=== PATIENT | female | born 1935 | race Caucasian/White ===

== ENCOUNTER 2016-09-23 00:02 | Inpatient (IN) ==
[2016-09-23] MEDS ORDERED: SODIUM CHLORIDE 0.9% 1,000 ML IV STA (00:17)
[2016-09-23] MEDS ORDERED: ONDANSETRON 4 MG/2 ML VIAL IV STA (00:17)
[2016-09-23] MEDS ORDERED: ONDANSETRON 4 MG/2 ML VIAL ONE (00:25)
[2016-09-23 00:38] LABS: Basophils % 0.3 % (0.0-0.8); Eosinophils # 0.2 10*3/uL (0.0-0.87); Eosinophils % 2.2 % (0.00-10.9); Hematocrit 22.3 VOL% (35.7-47.0); Immature Granulocytes % 0.4 %; Immature Granulocytes Absolute 0.03 #; Lymphocytes # 0.9 10*3/uL (1.4-4.0); Lymphocytes % 12.6 % (21.3-54.2); Mean Corpuscular HGB Conc 28.3 GM/DL (32-36); Mean Corpuscular Hemoglobin 19 PG (27-34); Mean Corpuscular Volume 68.8 FL (87-102); Monocytes # 0.4 10*3/uL (0.11-0.8); Monocytes % 5.1 % (1.7-12.7); Neutrophils # 5.9 10*3/uL (1.4-7.4); Neutrophils % 79.4 % (38.7-73.9); Platelet Count 426 T/CUMM (130-400); Red Blood Count 3.24 MC/CUMM (3.8-5.5); Red Cell Distribution Width 16.7 % (9.3-17.3); White Blood Count 7.4 T/CUMM (4-12)
[2016-09-23 00:42] LABS: Hemoglobin 6.3 GM/DL (12.0-16.0)
[2016-09-23 00:55] LABS: Alanine Aminotransferase < 6 U/L (13-56); Albumin 3.1 G/DL (3.4-5.0); Alkaline Phosphatase 106 U/L (45-117); Aspartate Amino Transferase 7 U/L (0-37); Bilirubin,Total < 0.39 MG/DL (0.2-1.0); Blood Urea Nitrogen 13 MG/DL (7-18); Calcium 8.4 MG/DL (8.5-10.1); Glucose 122 MG/DL (74-106); Osmolality,Calculated 275.7 MOS/KG (273-304); Potassium 3.9 MMOL/L (3.5-5.1); Sodium 138 MMOL/L (136-145); Total Protein 6.2 G/DL (6.4-8.3)
[2016-09-23] MEDS ORDERED: METOCLOPRAMIDE 10 MG/2 ML VIAL ONE (01:07)
[2016-09-23] MEDS ORDERED: METOCLOPRAMIDE 10 MG/2 ML VIAL IV STA (01:10)
--- NOTE | 2016-09-23 01:38 | Emergency Department Note ---
Yani Rouse Gwan, am scribing for, and in the presence of, Mathew Dukes MD 00:24. IErnst Kevin Lee, MD, personally performed the services described in this documentation, ascribed by Robert Lomeli in my presence, and it is both accurate and complete . Arrival - Arrival Chief Complaint: Abdominal / Flank Pain Stated Complaint: abdominal pain ED Nursing Triage Note: PT TO ROOM VIA [facility] STRETCHER. PT C.O ABD PAIN SINCE 2099 LAST NIGHT. PT STATES SHE WAS SEEN IN ED FRIDAY FOR CONSTIPATIION. Mode of Arrival: Stretcher Limitations: No Limitations Source: Patient, Old Records Reviewed, RN Notes Reviewed - History of Present Illness HPI Narrative: Patient is a 81 y/o white female who presents to the ED via EMS from home with a c/o abd pain and nausea with an onset 2099 last night. Patient confirmed that she was last seen in ED 09/20/2016 with constipation and abd pain. She is being followed by physicians at [facility]. Patient denies any vomiting. During exam, pt appeared lethargic with a flat affect but no signs of distress. No other problems/complaints reported in ED. Onset (ago): hour(s) Consistency: constant Severity: moderate Allergies/Adverse Reactions: Allergies Allergy/AdvReac Type Severity Reaction Status Date / Time aspirin Allergy Hallucinati Verified 11/07/14 09:20 ng Home Medications: Home Medications Medication Instructions Recorded Confirmed Type Lansoprazole [Prevacid] 30 mg PO BID #60 capsule. 11/07/14 06/25/16 Rx Furosemide Tab [Lasix Tab] 20 mg PO DAILY #7 tablet 11/21/14 06/25/16 Rx hydrOXYzine HCL TAB [Atarax Tab] 25 mg PO BID 06/25/16 06/25/16 History Dicyclomine Cap/Tab [Bentyl 20 mg PO QID PRN #20 tablet 09/20/16 Rx Cap/Tab] Ondansetron [Ondansetron Odt] 8 mg PO Q4H PRN #10 tab.rapdis 09/20/16 Rx Review of System - Review of System 12 point system: reviewed and no additional remarkable complaints except as stated - Review of System Constitutional: Absent: chills, fever Eyes: Absent: discharge Head/Ears/Nose/Throat: Absent: earache Respiratory: Absent: cough Cardiovascular: Absent: chest pain Gastrointestinal: Present: as per HPI, abdominal pain, nausea. Absent: vomiting , diarrhea Genitourinary female: Absent: dysuria Musculoskeletal: Absent: arm pain, back pain, leg pain, neck pain Skin: Absent: rash, lesions Neurological: Absent: headache, weakness Medical,Surgical,& Family Hx - Medical History Respiratory: History of: Bronchitis Gastrointestinal: History of: GERD, GI Problems (spastic colon/constipation) Musculoskeletal: History of: Osteoporosis - Social History Smoking Status: Unknown if ever smoked Frequency of Alcohol Use: None Type of Drug Use: None Exam Vital Signs: Vital Signs Temperature 97.9 F 09/23/16 00:05 Pulse Rate 81 09/23/16 00:05 Respiratory Rate 16 09/23/16 00:05 Blood Pressure 159/68 09/23/16 00:05 O2 Sat by Pulse Oximetry 93 L 09/23/16 00:05 - General General appearance: alert, in no apparent distress - Head Head exam: Present: atraumatic, normocephalic - Eye Eye exam: Present: other (cataract noted to left eye) - ENT ENT exam: Present: normal oropharynx, mucous membranes moist, TM's normal bilaterally, normal external ear exam - Neck Neck exam: Present: full ROM, trachea midline. Absent: tenderness - Chest Chest inspection: Present: symmetric chest wall rise. Absent: tenderness - Respiratory Respiratory exam: Present: normal lung sounds bilaterally. Absent: respiratory distress - Cardiovascular Cardiovascular exam: Present: regular rate, normal rhythm, normal heart sounds. Absent: murmur, rubs - Abdominal Exam Abdominal exam: Present: soft, tenderness (mild tenderness noted to abd ) - Rectal Exam Rectal exam: Present: heme (-) stool - Extremities Exam Extremities exam: Present: full ROM. Absent: tenderness - Back Exam Back exam: Present: full ROM. Absent: tenderness - Neurological Exam Neurological exam: Present: alert, oriented X3, CN II-XII intact. Absent: motor sensory deficit - Psychiatric Psychiatric exam: Present: normal affect, normal mood - Skin Skin exam: Present: warm, dry, intact, normal color Results - Labs CBC & BMP: 09/23/16 00:20 09/23/16 00:20 Lab Results: I have reviewed the patients labs - Diagnostic Findings Procedure: CT Abdomen and Pelvis: image reviewed by me (see report) Disposition Clinical Impression: Nausea and vomiting, Anemia Case discussed with: patient Disposition: Still a Patient Condition: Stable
[2016-09-23] MEDS ORDERED: ACETAMINOPHEN 325 MG TABLET PO PRN (02:16)
[2016-09-23] MEDS ORDERED: ONDANSETRON 4 MG/2 ML VIAL IV PRN (02:16)
--- NOTE | 2016-09-23 02:26 | Hospitalist History & Physical ---
Assessment and Plan (1) Nausea Status: Acute Current Visit: Yes (2) Acid reflux Status: Acute Current Visit: Yes (3) Anemia Status: Acute Assessment and plan: Plan for this patient #1. Admit the patient to monitored bed #2. Repeat CBC #3 If the repeat CBC she has shows anemia we will transfuse 2 units of packed red blood cells #4 treat as a GI bleed #5 consult GI this is the most likely cause of the anemia. Even though she is currently heme-negative. #6. We will need to review the repeat CT scan in the morning #7 anemia profile Current Visit: Yes History of Present Illness Chief complaint: Nausea and abdominal pain History of present illness: Ms. Deras is a 81 year old female with past medical history significant for reflux presents with nausea times several days. She came to the ER Friday with similar complaints. She was not admitted at that time. She reports that she has been able to eat and was still hungry. The seems, strange if she was that nauseated. Patient reports that she has been scoped upper and lower 15-20 years ago cannot tell why. She just knows that she has been burping a lot she was doing that on exam. She is complaining about abdominal cramps. She gets real weak over the least exertion. And patient's workup in the emergency room patient was found to be real anemic and I was consulted for admission. I am going to admit her through the emergency room. Her CT scan had some unusual findings this was on the V rad read such as a polymer pulmonary embolus. Will need to review the CT scan again once the final read is done this morning. Home Medications Medication Instructions Recorded Confirmed Type Lansoprazole [Prevacid] 30 mg PO BID #60 capsule. 11/07/14 09/23/16 Rx Allergies Allergy/AdvReac Type Severity Reaction Status Date / Time aspirin Allergy Hallucinati Verified 11/07/14 09:20 ng Medical,Surgical,& Family Hx - Medical History Respiratory: History of: Bronchitis Gastrointestinal: History of: GERD, GI Problems (spastic colon/constipation) Musculoskeletal: History of: Osteoporosis - Surgical History Abdominal Surgeries: Surgical HX of: Appendectomy, Cholecystectomy Reproductive Surgeries: Surgical HX of;: Section - Family History Additional Family History: Patient cannot relate any family history - Social History Smoking Status: Former smoker (Quit 1 month ago) Frequency of Alcohol Use: None Type of Drug Use: None 12 point system: reviewed and no additional remarkable complaints except as stated Exam - Constitutional Vitals: Period Temp Pulse Resp BP Sys/Mcduffie Pulse Ox Last 24 Hr 82 15 152/67 100 - General General appearance: alert, in no apparent distress - Head Head exam: Present: atraumatic, normocephalic - Eye Eye exam: Present: Patient has a prominent cataract on the left eye - ENT ENT exam: Present: normal oropharynx, mucous membranes moist, TM's normal bilaterally, normal external ear exam - Neck Neck exam: Present: full ROM, trachea midline. Absent: tenderness - Chest Chest inspection: Present: symmetric chest wall rise. Absent: tenderness - Respiratory Respiratory exam: Present: normal lung sounds bilaterally. Absent: respiratory distress - Cardiovascular Cardiovascular exam: Present: regular rate, normal rhythm, normal heart sounds. Absent: murmur, rubs - Abdominal Exam Abdominal exam: Present: soft, tenderness (mild tenderness noted to abd ) - Rectal Exam Rectal exam: Present: heme (-) stool per ER physician - Extremities Exam Extremities exam: Present: full ROM. Absent: tenderness - Back Exam Back exam: Present: full ROM. Absent: tenderness - Neurological Exam Neurological exam: Present: alert, oriented X3, CN II-XII intact. Absent: motor sensory deficit - Psychiatric Psychiatric exam: Present: normal affect, normal mood - Skin Skin exam: Present: warm, dry, intact, normal color Results Results - Labs CBC & BMP: 09/23/16 00:20 09/23/16 00:20
[2016-09-23 02:34] LABS: Hypochromasia 2+; Platelet Estimate Normal; Rouleau 1+; Stomatocytes Few
[2016-09-23 03:40] LABS: Basophils % 0.4 % (0.0-0.8); Eosinophils % 0.5 % (0.00-10.9); Hematocrit 23.3 VOL% (35.7-47.0); Hemoglobin 6.7 GM/DL (12.0-16.0); Immature Granulocytes % 0.8 %; Immature Granulocytes Absolute 0.06 #; Lymphocytes # 0.8 10*3/uL (1.4-4.0); Lymphocytes % 10.4 % (21.3-54.2); Mean Corpuscular HGB Conc 28.8 GM/DL (32-36); Mean Corpuscular Hemoglobin 20 PG (27-34); Mean Corpuscular Volume 69.3 FL (87-102); Mean Platelet Volume 9.3 FL (9.6-12.0); Monocytes # 0.2 10*3/uL (0.11-0.8); Monocytes % 3.2 % (1.7-12.7); Neutrophils # 6.4 10*3/uL (1.4-7.4); Neutrophils % 84.7 % (38.7-73.9); Platelet Count 443 T/CUMM (130-400); Red Blood Count 3.36 MC/CUMM (3.8-5.5); Red Cell Distribution Width 16.8 % (9.3-17.3); White Blood Count 7.6 T/CUMM (4-12)
[2016-09-23 03:50] LABS: Folate 11.5 NG/ML (5.4-24.0); Vitamin B12 401 PG/ML (211-911)
[2016-09-23 03:55] LABS: Calcium 8.4 MG/DL (8.5-10.1); Osmolality,Calculated 273.8 MOS/KG (273-304)
[2016-09-23] MEDS ORDERED: SODIUM CHLORIDE 0.9% 250 ML IV PRN (04:05)
[2016-09-23 04:09] LABS: Apearance,Urine CLOUDY (Clear); Bacteria,Urine Occasional /HPF (Few); Bilirubin,Urine Negative (Negative); Blood, Urine Negative (Negative); Glucose,Urine (UA) Negative (Negative); Ketones,Urine 5 mg/dL (Negative); Mucus,Urine Moderate /LPF (Occasional); Nitrite,Urine Negative (Negative); Protein,Urine Negative; RBC,Urine 4 /HPF (0-4); Squamous Epithelial Cell,Urine Few /HPF (0-10); Urine Color Yellow (Yellow); Urine Specific Gravity 1.014 (1.001-1.035); Urine Urobilinogen < 2.0 EU/DL (0.2-1.0); WBC,Urine 33 /HPF (0-6)
[2016-09-23 04:22] LABS: Hypochromasia 1+; Platelet Estimate Normal; Rouleau 1+
[2016-09-23 04:23] LABS: Spherocytes Few
[2016-09-23 04:33] LABS: Sedimentation Rate-Westergren 39 MM/HR (0-30)
--- NOTE | 2016-09-23 06:24 | CT Report ---
Referring physician: Mathew Dukes EXAM: CT abdomen and pelvis without contrast DATE: September 23, 2016 COMPARISON: CT abdomen and pelvis August 14, 2010 REASON: Generalized abdominal pain and pelvic pain Preliminary report was provided by [facility]. TECHNIQUE: Axial images of the abdomen and pelvis were obtained without the use of contrast. Coronal and sagittal reformatted images were also provided. Total DLP is 332.0 mGy*cm. FINDINGS: Lower thorax: There is a moderate hiatal hernia and minimal bibasilar atelectasis or scarring. Linear density is also seen within the posterior basilar segment of the right lower lobe. This likely represents embolized cement material within a subsegmental pulmonary artery from previous kyphoplasty/vertebroplasty. Bronchiectasis is also noted at the lung bases. ABDOMEN: Liver: There is a 1.4 cm hypodensity within the medial left hepatic lobe on image 30. This is stable in size and favored to represent a cyst, but characterization is limited by the lack of contrast. Gallbladder and bile ducts: The gallbladder is not identified and could be surgically absent or contracted. No biliary duct dilatation is seen. Pancreas: Unremarkable. Spleen: Unremarkable. Adrenals: Unremarkable. Kidneys and ureters: No hydronephrosis is present, and no renal or ureteral calculi are seen. PELVIS: Bladder: Unremarkable. Reproductive: Unremarkable as visualized. ABDOMEN AND PELVIS: Bowel: There is no evidence of bowel obstruction or inflammation. Colonic diverticula are present, but there is no evidence of appendicitis. Appendix: The appendix is not identified, but there are no secondary signs of appendicitis. Vasculature: The abdominal aorta is normal in size. Mild scattered calcified plaque is seen at the arteries. Peritoneum: No free air or ascites is seen. Lymph nodes: No suspicious adenopathy is seen. Abdominal/pelvic wall: There is a minimal fat-containing umbilical hernia. Bones: Moderate to severe compression fractures are seen at T10-L5. There is mild retropulsion at some levels. Kyphoplasty/vertebroplasty change is seen at T10, T11, T12, L2, L3 and L4. 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 IMPRESSION: 1. No acute process is identified within the abdomen or pelvis. 2. Moderate hiatal hernia. 3. Colonic diverticulosis without evidence of diverticulitis. 4. There are moderate to severe compression fractures at T10-L5, many of which demonstrate kyphoplasty/vertebroplasty change. They are favored to be chronic, but further evaluation could be performed with a bone scan or MRI. 5. 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 This is similar to before. The CT exam was performed using one or more of the following dose reduction techniques: Automated exposure control and adjustment of the mA and/or kV according to patient size. PROCEDURE INTERPRETED AT [facility] DEPARTMENT OF RADIOLOGY Final Report Signed by: Dr. Adalid Cash
[2016-09-23] MEDS ORDERED: PANTOPRAZOLE 40 MG TABLET PO SCH (09:00)
[2016-09-23 10:01] LABS: Hemoglobin A1 (Alkaline) 97.3 % (96.5-98.5); Hemoglobin A2 (Alkaline) 2.7 % (1.5-3.5)
[2016-09-23] MEDS: PANTOPRAZOLE 40 MG VIAL IV SCH ×2 (10:01→21:06)
--- NOTE | 2016-09-23 12:44 | Event Note ---
Patient has been seen interviewed and examined chart has been reviewed. She was admitted in the morning hours of today. This is an addendum to morning assessment cannot be charged. This 81-year-old lady with a history of reflux who presented to the hospital nausea vomiting and found to have profound anemia with hematocrit of 22.3% she has been transfused packed cells right now we will repeat H&H after second unit. Attention will be paid to her respiratory status on outside chance she develops pulmonary edema. On examination: She is a nice elderly lady in no acute distress; respiratory rate of 18 breaths per minute blood pressure 128/59 heart rate elevated to regular rhythm pulse oximetry is around 96%. She has no complaints of shortness of breath at the time of assessment good air entry in both lungs no wheezing no rales no rhonchi. Heart tones were normal in amplitude regular rhythm no murmurs or gallops. Abdomen is soft nontender no obvious organomegaly. Skin and skin structures were intact she does have lax to skin structures of age. Musculoskeletal assessment is unremarkable neurologic assessment was unremarkable Impression: Profound anemia cause unknown at this point. It could be dysfunctional production could be bleeding. There is no objective or subjective documentation of bleeding at this time. At her age and myelodysplastic process could be the cause. I will reassess the patient in the morning.
[2016-09-23 14:28] LABS: Hematocrit 28.7 VOL% (35.7-47.0); Hemoglobin 8.8 GM/DL (12.0-16.0)
[2016-09-23 15:15] LABS: % Iron Saturation 2.7 % (18-50)
[2016-09-23 16:41] LABS: Hematocrit 30.3 VOL% (35.7-47.0); Hemoglobin 9.2 GM/DL (12.0-16.0)
--- NOTE | 2016-09-23 17:16 | Gastrointestinal Consult Note ---
Assessment and Plan (1) Pharyngoesophageal dysphagia Status: Acute Current Visit: Yes (2) Iron deficiency anemia Status: Acute Assessment and plan: The patient's iron is 10 with a TIBC of 364 and a iron saturation of 2.7 with a ferritin of 2.2 all consistent with iron deficiency anemia with probably a component of anemia of chronic disease in addition. Plan on doing upper endoscopy with probably some biopsies to look for celiac sprue if no gross evidence of cancer seen. Because of this patient's history of periumbilical pain and chronic constipation in addition to her sister's history of colon cancer and polyps with no prior colonoscopy done the last 10 years she certainly does require a colonoscopy likely before she goes home. We may do the prep tomorrow depending on what the findings of upper endoscopy show. Differential diagnosis includes esophageal cancer, esophagitis, gastritis, gastric cancer, AVMs, Dieulafoy's lesion, duodenitis, celiac sprue, AVMs of the colon, colon cancer, and bleeding polyp disease. Current Visit: Yes (3) Periumbilical pain, chronic Status: Acute Assessment and plan: This is likely related to patient's underlying constipation issues. We will give her some MiraLAX 3 times daily while we are getting her cleaned out for potential colonoscopy that may occur on Friday depending on findings of upper endoscopy tomorrow. Continue on clear liquids for the present time. Current Visit: Yes (4) Chronic constipation Status: Acute Assessment and plan: As noted above. We will start the patient on MiraLAX 1 capful 3 times daily in order to "prime the pump" prior to doing a colonoscopy later on this admission should help out with her abdominal pain as well. Current Visit: Yes History of Present Illness Chief complaint: Dysphagia, anemia with hematocrit of 23.3%, MCV 69, periumbilical pain History of present illness: Ms. Deras is a 81 year old female who has a long-standing history of reflux issues going back to age 22. She has reflux fairly severely and also complains of dysphasia which has been going on for over 10 years. Solids seem to get stuck more than liquids with food hanging up in the midesophagus. The patient is able to deal with this by drinking after every bite to help lubricate and force the food down. Typical foods that would produce this dysphagia include meats and rice as well as apples. The patient also has some periumbilical pain which is quite severe and associated with her underlying constipation with one bowel movement every 3-5 days. She has not had a colonoscopy or EGD since she left [place] and feels that this is been at least 10 years ago. She has not had any phillip melena or black tarry bowel movements/she has not had any rectal bleeding nor hematemesis or vomiting although she is frequently nauseated with her reflux. She has frequent belching and states that this is keeping her from going to [employer]. Her hematocrit in the emergency room was 23.3% status post 2 unit transfusion this is increased to 30%. She does have a sister with a history of colon cancer as well as polyps. She will need a colonoscopy, likely before she leaves. She does take lansoprazole on a twice daily dosing schedule. Home Medications Medication Instructions Recorded Confirmed Type Lansoprazole [Prevacid] 30 mg PO BID #60 capsule. 11/07/14 09/23/16 Rx Allergies Allergy/AdvReac Type Severity Reaction Status Date / Time aspirin Allergy Hallucinati Verified 11/07/14 09:20 ng Medical,Surgical,& Family Hx - Medical History Respiratory: History of: Bronchitis, COPD Gastrointestinal: History of: GERD, GI Problems (spastic colon/constipation) Musculoskeletal: History of: Osteoporosis - Surgical History Abdominal Surgeries: Surgical HX of: Appendectomy, Cholecystectomy Reproductive Surgeries: Surgical HX of;: Section, Gynecologic Surgery - Social History Smoking Status: Former smoker Frequency of Alcohol Use: None Type of Drug Use: None Review of systems: Constitutional: Denies fever, chills, and vomiting but does have some nausea frequently. Eyes: Denies dry eyes, and scleral icterus HENT: Denies headaches Cardiovascular: Denies acute chest pain unless she is having a severe dysphagia contact but no d claudication Respiratory: Denies shortness of breath, wheezing, and difficulty breathing, denies cough Gastrointestinal: As noted in the HPI Genitourinary: Denies dysuria and hematuria Neurologic: She does admit to some left ocular vision loss post development of a cataract, but no loss of sensation Musculoskeletal: She admits to some joint swelling, joint stiffness, and muscular weakness--she has been very fatigued with her anemia lately Psychiatric: Denies depression and beni symptoms--this patient is remarkably lucid. Heme-Lymph: Denies easy bruising, lymph node enlargement or tenderness, night sweats, excessive bleeding Allergies-immunologic: Denies pruritus and rhinorrhea Exam - Constitutional Vitals: Period Temp Pulse Resp BP Sys/Mcduffie Pulse Ox Last 24 Hr 97.4 F-98.9 F 68-89 15-20 121-152/52-67 96-100 Exam: Constitutional: Well-developed, well-nourished, alert, and in no acute distress Head and face: Head: Normocephalic atraumatic Eyes: Conjunctiva without injection, no gross scleral icterus, the patient has anisocoria with clouding of her left pupil consistent with cataract and pupillary syncytia noted Ears: Intact to conversation in both ears Nose: External appearance is normal, nares patent Mouth: Oral mucous membranes moist the patient has dentures above, there are a few remaining eroded carious teeth in the lower arch in the front, these appear to be broken off the gumline. Neck: Normal appearance, no masses or tenderness, trachea midline Thyroid: Gland midline and appropriate size for age Respiratory: Normal respiratory effort, clear to auscultation without wheezes, rhonchi or rales Cardiovascular: Regular rate and rhythm, normal S1, S2, the exam is without rubs, murmurs or gallops. Gastrointestinal: Mild tenderness to deep palpation in the periumbilical region with slight hernia bulging noted here in association with the patient's previous scar, normal active bowel sounds, tone normal without rigidity or guarding, no masses present, no hepatomegaly, no spleen tip felt. Rectal exam with hard stool, decreased rectal tone, stool is brown and guaiac negative.. Lymphatic: Neck without adenopathy, axilla without lymphadenopathy present Musculoskeletal: Right and left lower extremities without evidence of edema Skin and subcutaneous tissue: No rashes or ulcerations noted, normal skin turgor, digits and nails without clubbing/cyanosis/deformities. Neurologic: The patient is grossly oriented to person place and time, cranial nerves show tongue movements are normal with normal tongue extrusion midline, light touch sensation is intact. Psychiatric: No hallucinations or delusions are present, does not appear depressed Results - Labs CBC & BMP: 09/23/16 16:14 09/23/16 02:59 Quality Measures - Stroke Symptom Onset Unknown: No
[2016-09-23] MEDS: POLYETHYLENE GLYCOL POWDER 17 GM PACK PO SCH (21:13)
[2016-09-23 21:26] LABS: Hematocrit 29.6 VOL% (35.7-47.0); Hemoglobin 9.2 GM/DL (12.0-16.0)
[2016-09-24 06:50] LABS: Hematocrit 29.5 VOL% (35.7-47.0); Hemoglobin 9.2 GM/DL (12.0-16.0)
[2016-09-24] MEDS ORDERED: PROPOFOL 200 MG/20 ML VIAL IV ONE (08:43)
[2016-09-24] MEDS ORDERED: LIDOCAINE 1% 5 ML VIAL ONE (08:43)
--- NOTE | 2016-09-24 08:51 | Operative Note ---
Date of procedure: 09/24/16 Pre-op diagnosis: Dysphagia, iron deficiency anemia, periumbilical pain, constipation Post-op diagnosis: other (No gross evidence of a cause for the patient's anemia , multiple gastric polyps noted biopsied 1, mild patchy gastritis was noted with a slight linear component near the antrum also biopsied. Duodenal biopsies pending to rule out sprue. The patient was incidentally dilated to 57 [place] which should help out with her dysphagic symptoms.) Procedure: PROCEDURE: Esophagogastroduodenoscopy (EGD) with cold biopsy for pathology and dilation to 57 [place] by single pass Savary dilator REFERRING PHYSICIAN: Dr. Ephraim Carrion MD INDICATIONS: Belching, reflux, history of dysphagia times many years, this patient also has periumbilical pain chronic constipation and will likely require a colonoscopy due to sister's history of colon cancer tomorrow and anemia. The prior H&P was reviewed and interrim changes are as noted: No change from GI consultation yesterday ENDOSCOPIST: John Cisneros MD ENDOSCOPE: Olympus Video 100 System upper endoscope ASA CLASS: 3 EXAM: CV: regular rate and rhythm respiratory: Clear without wheezes abdominal: active bowel sounds MEDICATION: Per nursing anesthesia protocol, see their notes PROCEDURE: After discussion of the potential risks and benefits of upper endoscopy, the informed consent was obtained. The patient was then placed in the left lateral decubitus position where sedation was achieved as noted above. Esophageal intubation was performed without difficulty, and the endoscope was advanced through the esophagus, stomach and duodenum. A slow withdrawal was then performed with retroflexion in the stomach for careful inspection of the incisura angularis, fundus and cardia. The scope was then returned to a neutral position and withdrawn through the esophagus. The patient tolerated the procedure well and without complication. BIOPSIES: Gastric antrum/body, duodenum PHOTOGRAPHS: Obtained FINDINGS: Hypopharynx and Larynx: Normal Esohagoscopy Upper and middle thirds: Normal Lower third normal Esophogastric junctions: Schatzki's ring/fibrotic ring noted at the EG junction, this was dilated postprocedure to 57 [place] by single pass Savary dilator with minimal resistance and no heme. Gastroscopy: Cardia/Fundus: Patient does not have a hiatal hernia but does have multiple fundal polyps noted, one of these was biopsied and sent for pathology Body: Mild diffuse gastritis, polyp biopsied also noted in this area these ranged in size between 0.5 and 1 cm in size and were numerous. Antrum and pylorus no further polyp disease here, slight linear component of gastritis, biopsied, wire advanced into the stomach to facilitate Savary dilation as noted above. Duodenoscopy: Bulb normal-appearing, biopsied for sprue Second and third portions: Normal-appearing, biopsied for sprue IMPRESSION: No gross evidence of a cause for the patient's anemia, multiple gastric polyps noted biopsied 1, mild patchy gastritis was noted with a slight linear component near the antrum also biopsied. Duodenal biopsies pending to rule out sprue. The patient was incidentally dilated to 57 [place] which should help out with her dysphagic symptoms. RECOMMENDATIONS: Follow up for biopsy results in 1-2 weeks by phone [phone] Continue anti-gastroesophageal reflux measures (avoid carbonated and acidic beverages, avoid eating within 2 hours of bedtime, avoid tight fitting clothing , and elevate the front bed posts 6 inches prior to sleeping. I would proceed with colonoscopy tomorrow in order to look for a source for the patient's anemia. Repeat dilation in 6-18 months if this was felt to be helpful Protonix 40 mg prior to suppertime each day for symptom relief. John Cisneros MD COPY TO: Dr. Ephraim Carrion MD Anesthesia: MAC Surgeon / Physician: John Cisneros Estimated blood loss: minimal Specimens: other (Gastric antrum/body, duodenum) Condition: stable Disposition: post procedure unit (G.I. Suite) Results - Labs CBC & BMP: 09/24/16 05:45 09/23/16 02:59 Discharge Plan - Discharge Medications No Action Lansoprazole [Prevacid] 30 mg PO BID #60 capsule.dr - Follow Up or Referral - Forms/Instructions
--- NOTE | 2016-09-24 08:53 | Anesthesia Post-Op ---
Anesthesia Post OP - Post Ansesthetic Evaluation Patient seen in post op: Yes Resp: within normal limits CV: within normal limits Mental: within normal limits Temp: within normal limits [id number]: within normal limits Nausea and Vomiting: within normal limits Pain: within normal limits
--- NOTE | 2016-09-24 08:56 | Gastrointestinal Progress Note ---
Assessment and Plan (1) Pharyngoesophageal dysphagia Status: Acute Current Visit: Yes (2) Iron deficiency anemia Status: Acute Assessment and plan: The patient's iron is 10 with a TIBC of 364 and a iron saturation of 2.7 with a ferritin of 2.2 all consistent with iron deficiency anemia with probably a component of anemia of chronic disease in addition. Plan on doing upper endoscopy with probably some biopsies to look for celiac sprue if no gross evidence of cancer seen. Because of this patient's history of periumbilical pain and chronic constipation in addition to her sister's history of colon cancer and polyps with no prior colonoscopy done the last 10 years she certainly does require a colonoscopy likely before she goes home. We may do the prep tomorrow depending on what the findings of upper endoscopy show. Differential diagnosis includes esophageal cancer, esophagitis, gastritis, gastric cancer, AVMs, Dieulafoy's lesion, duodenitis, celiac sprue, AVMs of the colon, colon cancer, and bleeding polyp disease. 09/24/16--findings at upper endoscopy include the following: No gross evidence of a cause for the patient's anemia, multiple gastric polyps noted biopsied 1, mild patchy gastritis was noted with a slight linear component near the antrum also biopsied. Duodenal biopsies pending to rule out sprue. She also had multiple gastric polyps noted incidentally. The patient was incidentally dilated to 57 Afghan which should help out with her dysphagic symptoms. Due to the patient's sister's history of colon cancer and her chronic constipation, periumbilical pain we will proceed with colonoscopy tomorrow to rule out lower GI sources of bleeding. Current Visit: Yes (3) Periumbilical pain, chronic Status: Acute Assessment and plan: This is likely related to patient's underlying constipation issues. We will give her some MiraLAX 3 times daily while we are getting her cleaned out for potential colonoscopy that may occur on Friday depending on findings of upper endoscopy tomorrow. Continue on clear liquids for the present time. 09/24/16--I believe this pain is likely due to the underlying constipation, will rule out masses in the colon. Current Visit: Yes (4) Chronic constipation Status: Acute Assessment and plan: As noted above. We will start the patient on MiraLAX 1 capful 3 times daily in order to "prime the pump" prior to doing a colonoscopy later on this admission should help out with her abdominal pain as well. 09/24/16--We will proceed with colonoscopy tomorrow. Hopefully will be able to clean outpatient effectively today. Current Visit: Yes Gastroenterology - PN: Subj Interval history: Patient is doing fine, we were able to perform upper endoscopy because of her history of dysphagia. Dilation proceeded without difficulty. She has no other new complaints. Exam (Progress Note) - Constitutional Vitals: Period Temp Pulse Resp BP Sys/Mcduffie Pulse Ox Last 24 Hr 97.2 F-98.4 F 68-94 18-20 123-142/57-67 93-97 General appearance: no acute distress - Head Head exam: Present: normocephalic - Eye Eye exam: Present: EOMI Pupils: Present: OLGA - Respiratory Respiratory exam: Present: clear to auscultation bilaterally - Cardiovascular Cardiovascular exam: Present: regular rate and rhythm - GI/Abdominal GI/Abdominal exam: Present: normal bowel sounds, soft. Absent: tenderness, rebound - Neurological Exam Neurological exam: Present: alert - Psychiatric Psychiatric exam: Present: normal affect, normal mood - Skin Skin exam: Present: warm Results - Labs CBC & BMP: 09/24/16 05:45 09/23/16 02:59
[2016-09-24] MEDS: PANTOPRAZOLE 40 MG VIAL IV SCH ×2 (09:47→20:10)
[2016-09-24] MEDS: POLYETHYLENE GLYCOL POWDER 17 GM PACK PO SCH ×3 (09:48→20:04)
[2016-09-24] MEDS: BISACODYL 5 MG TABLET PO SCH ×2 (09:48→16:57)
--- NOTE | 2016-09-24 12:23 | Hospitalist Progress Note ---
Assessment and Plan (1) Schatzki's ring of distal esophagus Status: Acute Assessment and plan: This was dilated during the procedure this morning to 57 Czech. Current Visit: Yes (2) Iron deficiency anemia Status: Acute Assessment and plan: Patient was transfused yesterday this probably a colonoscopy tomorrow to see for the loss of wound is at the lower GI site. Upper GI just showed diffuse gastritis no active bleeding. Current Visit: Yes Hospitalist: Subjective Interval history: Patient is seen interviewed and examined chart has been reviewed. Patient had a endoscopy today upper GI with discovery of diffuse gastritis. No bleeding sites. There was incidental finding of fibrotic Schatzki ring which was dilated to 57 Czech. Plan to do a colonoscopy tomorrow to try to explain with the patient has lost his blood rate. GI is on the case Exam - Constitutional Vitals: Period Temp Pulse Resp BP Sys/Mcduffie Pulse Ox Last 24 Hr 97.2 F-98.4 F 69-94 18-22 97-142/34-67 93-99 General appearance: normal weight - Head Head exam: Present: normocephalic, atraumatic - Eye Eye exam: Present: EOMI Pupils: Present: OLGA - ENT ENT exam: Present: normal exam - Neck Neck exam: Present: other (Supple neck she does have some mild discomfort was likely secondary to position during the procedures. Is able to talk without any limitations) - Respiratory Respiratory exam: Present: clear to auscultation bilaterally - Cardiovascular Cardiovascular exam: Present: regular rate and rhythm - GI/Abdominal GI/Abdominal exam: Present: normal bowel sounds, soft - Extremities Exam Extremities exam: Present: full ROM - Back Exam Back exam: Present: normal inspection - Neurological Exam Neurological exam: Present: alert, oriented X3, CN II-XII intact - Psychiatric Psychiatric exam: Present: normal affect, normal mood - Skin Skin exam: Present: normal color, warm, dry Results - Labs CBC & BMP: 09/24/16 05:45 09/23/16 02:59 Lab Results: I have reviewed the past 24 hour labs Quality Measures - Stroke Symptom Onset Unknown: No
[2016-09-24] MEDS: NYSTATIN POWDER 15 GM BOTTLE TOP SCH ×2 (14:38→20:07)
[2016-09-24] MEDS ORDERED: cefTRIAXone 1,000 MG in SODIUM CHLORIDE 0.9% 100 ML IV SCH (18:00)
[2016-09-24] MEDS ORDERED: POLYETHYLENE GLYCOL POWDER 255 GM BOTTLE PO ONE (18:00)
[2016-09-24] MEDS ORDERED: MAGNESIUM CITRATE 300 ML BOTTLE PO ONE (21:00)
[2016-09-25] MEDS: BISACODYL 5 MG TABLET PO SCH (02:07)
[2016-09-25] MEDS ORDERED: PROPOFOL 200 MG/20 ML VIAL IV ONE (08:19)
[2016-09-25] MEDS ORDERED: LIDOCAINE 1% 5 ML VIAL ONE (08:19)
--- NOTE | 2016-09-25 08:36 | Operative Note ---
Date of procedure: 09/25/16 Pre-op diagnosis: Anemia, sister with a history of colon cancer, chronic constipation Post-op diagnosis: other (This patient has family history of sister with colon cancer but her colonoscopy is otherwise negative with moderate size internal hemorrhoids and a few scattered sigmoid diverticuli.) Procedure: PROCEDURE: Colonoscopy REFERRING PHYSICIAN: Dr. Ephraim Carrion MD INDICATIONS: This is a patient with periumbilical pain and chronic constipation who also has a sister with a history of colon cancer. She has not had a colonoscopy in the last 10 years and has anemia with hematocrit down to 23 %, rule out colon cancer. Hematocrit is up to 29% posttransfusion and stable the prior H&P was reviewed and interrim changes are as noted: No change from GI consultation this admission ENDOSCOPIST: John Cisneros MD ENDOSCOPE: [employer] Video 100 System colonoscope COLON PREPARATION: 238 gm of PEG containing laxative and 1.9 liters of gatoraid/sports drink and dulcolax 15 mg q8 hours x 3 ASA CLASS: 3 EXAM: CV: regular rate and rhythm Respiratory: Clear without wheezes Abdominal: active bowel sounds Rectal: Good tone, no fissures or fistulas MEDICATION: Per nursing anesthesia protocol, see their notes PROCEDURE: After discussion of the potential risks and benefits of colonoscopy, the informed consent was obtained, from patient or health care surrogate. The patient was then placed in the left lateral decubitus position where sedation was achieved as noted above. Rectal examination was followed by insertion of the colonoscope. The colonoscope was passed under direct visualization to the cecum. Advancement was facilitated by insertion/withdrawl techniques, abdominal pressure and patient positioning. Once the cecal pole was reached, slow withdrawal was performed with the findings as noted below. The patient tolerated the procedure well and without complication. QUALITY OF PREP: Very good WITHDRAWL TIME: 6 minutes 23 seconds BIOPSIES: Not obtained PHOTOGRAPHS: Obtained FINDINGS: The musoca appeared normal in the following regions: rectum, sigmoid colon, descending colon, splenic flexure, transverse colon, hepatic flexure, ascending colon and cecum. Position within the cecum was confirmed by ileocecal valve, appendiceal oriface, and the convergence of folds (crows foot) . No colitis, polyp, mass or AVM was noted throughout the colon. Very mild left-sided diverticulosis noted. Intubation of the TI was achieved x 5 cm with normal appearence, moderate size internal hemorrhoids noted. IMPRESSION: This patient has family history of sister with colon cancer but her colonoscopy is otherwise negative with moderate size internal hemorrhoids and a few scattered sigmoid diverticuli. RECOMMENDATIONS: High fiber diet Repeat colonosocopy will be in 5 years due to family history. No polyps seen MiraLAX 1 capful once to twice daily Follow up by phone for biopsy results in 1-2 weeks by phone John Cisneros MD COPY TO: Dr. Ephraim Carrion MD Anesthesia: MAC Surgeon / Physician: John Cisneros Estimated blood loss: minimal Specimens: none sent Condition: stable Disposition: post procedure unit (G[facility]I. Suite) Results - Labs CBC & BMP: 09/24/16 05:45 09/23/16 02:59 Discharge Plan - Discharge Medications No Action Lansoprazole [Prevacid] 30 mg PO BID #60 capsule.dr - Follow Up or Referral - Forms/Instructions
--- NOTE | 2016-09-25 08:40 | Gastrointestinal Progress Note ---
Assessment and Plan (1) Pharyngoesophageal dysphagia Status: Acute Assessment and plan: Status post dilation on 09/24/16 with good results, no further problems with swallowing. She would like a regular diet. Current Visit: Yes (2) Iron deficiency anemia Status: Acute Assessment and plan: The patient's iron is 10 with a TIBC of 364 and a iron saturation of 2.7 with a ferritin of 2.2 all consistent with iron deficiency anemia with probably a component of anemia of chronic disease in addition. Plan on doing upper endoscopy with probably some biopsies to look for celiac sprue if no gross evidence of cancer seen. Because of this patient's history of periumbilical pain and chronic constipation in addition to her sister's history of colon cancer and polyps with no prior colonoscopy done the last 10 years she certainly does require a colonoscopy likely before she goes home. We may do the prep tomorrow depending on what the findings of upper endoscopy show. Differential diagnosis includes esophageal cancer, esophagitis, gastritis, gastric cancer, AVMs, Dieulafoy's lesion, duodenitis, celiac sprue, AVMs of the colon, colon cancer, and bleeding polyp disease. 09/24/16--findings at upper endoscopy include the following: No gross evidence of a cause for the patient's anemia, multiple gastric polyps noted biopsied 1, mild patchy gastritis was noted with a slight linear component near the antrum also biopsied. Duodenal biopsies pending to rule out sprue. She also had multiple gastric polyps noted incidentally. The patient was incidentally dilated to 57 [place] which should help out with her dysphagic symptoms. Due to the patient's sister's history of colon cancer and her chronic constipation, periumbilical pain we will proceed with colonoscopy tomorrow to rule out lower GI sources of bleeding. 09/25/16--findings a colonoscopy are as follows: This patient has family history of sister with colon cancer but her colonoscopy is otherwise negative with moderate size internal hemorrhoids and a few scattered sigmoid diverticuli. The patient is reached the maximum benefits of her hospitalization she can be discharged to home to follow-up with me in the office in another 6 weeks for follow-up hematocrit. We will contact her with the biopsies. No further polyps or bleeding source was seen in the colon. Current Visit: Yes (3) Periumbilical pain, chronic Status: Acute Assessment and plan: This is likely related to patient's underlying constipation issues. We will give her some MiraLAX 3 times daily while we are getting her cleaned out for potential colonoscopy that may occur on Friday depending on findings of upper endoscopy tomorrow. Continue on clear liquids for the present time. 09/24/16--I believe this pain is likely due to the underlying constipation, will rule out masses in the colon. 09/25/16--the pain is likely due to underlying constipation no masses were noted in the colon nor was there any infection or colitis seen. No bleeding source in the colon either. With suggest use of MiraLAX about twice daily to help out with her constipation. Current Visit: Yes (4) Chronic constipation Status: Acute Assessment and plan: As noted above. We will start the patient on MiraLAX 1 capful 3 times daily in order to "prime the pump" prior to doing a colonoscopy later on this admission should help out with her abdominal pain as well. 09/24/16--We will proceed with colonoscopy tomorrow. Hopefully will be able to clean outpatient effectively today. 09/25/16--as noted above. Current Visit: Yes Gastroenterology - PN: Subj Interval history: No new complaints, patient did well with her prep. Exam (Progress Note) - Constitutional Vitals: Period Temp Pulse Resp BP Sys/Mcduffie Pulse Ox Last 24 Hr 96.9 F-98.4 F 69-97 16- 97-161/34-68 95-99 General appearance: over weight - Head Head exam: Present: normocephalic, atraumatic - Eye Eye exam: Present: EOMI - Respiratory Respiratory exam: Present: clear to auscultation bilaterally - Cardiovascular Cardiovascular exam: Present: regular rate and rhythm - GI/Abdominal GI/Abdominal exam: Present: normal bowel sounds, soft. Absent: distended, tenderness, rebound - Neurological Exam Neurological exam: Present: alert, oriented X3 - Psychiatric Psychiatric exam: Present: normal affect, normal mood - Skin Skin exam: Present: warm Results - Labs CBC & BMP: 09/24/16 05:45 09/23/16 02:59
--- NOTE | 2016-09-25 08:56 | Anesthesia Post-Op ---
Anesthesia Post OP - Post Ansesthetic Evaluation Patient seen in post op: Yes Resp: within normal limits CV: within normal limits Mental: within normal limits Temp: within normal limits [id number]: within normal limits Nausea and Vomiting: within normal limits Pain: within normal limits
[2016-09-25] MEDS: PANTOPRAZOLE 40 MG VIAL IV SCH (10:36)
[2016-09-25] MEDS: POLYETHYLENE GLYCOL POWDER 17 GM PACK PO SCH (10:37)
[2016-09-25] MEDS: NYSTATIN POWDER 15 GM BOTTLE TOP SCH (10:38)
--- NOTE | 2016-09-25 11:21 | Discharge Summary ---
Diagnosis - Discharge Diagnosis (1) Schatzki's ring of distal esophagus Status: Acute (2) Iron deficiency anemia Status: Acute Discharge Plan - Discharge Data Disposition: Disch To Home/Self Care Condition at Discharge: Stable Discharge Diet: heart healthy Activity: increase activity as tolerated Hygiene: may shower Weight Bearing at Discharge: weight bear as tolerated Driving: not until seen by doctor Contact your physician if you experience:: fever over 101, Nausea/Vomiting, Shortness of breath, Bleeding, pain uncontrolled by pain medications - Discharge Medications Continue Lansoprazole [Prevacid] 30 mg PO BID #60 capsule.dr - Follow Up or Referral - Forms/Instructions Exam - Constitutional Vitals: Period Temp Pulse Resp BP Sys/Mcduffie Pulse Ox Last 24 Hr 96.9 F-98.4 F 71-97 16-22 126-161/54-70 95-97 General appearance: normal weight - Head Head exam: Present: normal inspection - Eye Eye exam: Present: EOMI Pupils: Present: OLGA - ENT ENT exam: Present: normal exam - Neck Neck exam: Present: normal inspection - Cardiovascular Cardiovascular exam: Present: regular rate and rhythm - GI/Abdominal GI/Abdominal exam: Present: normal bowel sounds, soft - Extremities Exam Extremities exam: Present: full ROM - Neurological Exam Neurological exam: Present: alert, oriented X3, CN II-XII intact - Psychiatric Psychiatric exam: Present: normal affect, normal mood - Skin Skin exam: Present: normal color, warm, dry Discharge Results Procedures and tests throughout hospitalization: Pending Orders 09/25/16 00:45 Occult Blood, Stool Routine DS: Provider Date of admission: 09/23/16 01:42 Primary care physician: . No PCP Attending physician on admission: Kip Rausch MD Consults: 09/23/16 02:16 Consult to Physician [CONS] Routine Comment: Consulting Provider: John Cisneros Consult to Specialist Group: Gastroenterology When should Consulting Provider be notified: In am Person Notified: CLIFFORD Date Notified: 09/23/16 Time Notified: 09:41 09/23/16 17:15 Consult to Anesthesiology [CONS] Routine Consulting Provider: Reason for Anesthesiology: Pre-op Clearance Discharging clinician: Ephraim Carrion MD
[2016-09-25 11:46] VITALS: BP 140/62
--- NOTE | 2016-09-25 12:44 | Pathology Report from [facility] ---
[facility] ACCESSION # : [id number] PATIENT NAME : Emely Reed ORDERING DR : John Cisneros MD CLINICAL HX: Anemia POST-OP DX: #1 Sprue #2 Gastritis SPECIMEN INFO: #1 Duodenal #2 KATELIN, gastric polyp GROSS DESCRIPTION: #1 Received in formalin labeled with the patients name EMELY REED and #1 consists of an aggregate of santacruz mucosal tissue measuring 0.8 x 0.3 cm. Submitted in cassette #1.#2 Received in formalin labeled with the patients name EMELY REED and #2 consists of fragments of pink-santacruz mucosal tissue measuring 1.0 x 0.5 cm. submitted in cassette #2. 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 No evidence of granulomas, parasites, tumor or celiac disease.#2 KATELIN BIOPSIES, GASTRIC POLYP: Chronic superficial gastritis; hyperplastic gastric polyp. H. pylori not seen on special stain. COLLECTED DATE: 09/24/2016 [facility] REPORT DATE: 09/25/2016 ELECTRONICALLY SIGNED BY: Ramses Akbar M.D. 09/25/2016 - 10:23:00 ERIC
== END 2016-09-25 14:45 | disposition home or self-care (01) | DRG 812 ==
LOC: EDUNIT# → N.ED 00:02 → SUATTDRO 01:42 → N.EDINP 01:42 → N.5E 02:02
PROVIDERS: ADMIT Internal Medicine; ATTEND Internal Medicine Infectious Disease

== ENCOUNTER 2019-04-04 08:54 | Inpatient (IN) ==
[2019-04-04 11:00] LABS: Basophils % 0.3 % (0.0-0.8); Mean Corpuscular Volume 72.6 FL (87-102); Monocytes % 4.8 % (1.7-12.7)
[2019-04-04 11:01] LABS: Apearance,Urine CLEAR (Clear); Bacteria,Urine Many /HPF (Few); Bilirubin,Urine Negative (Negative); Blood, Urine Small mg/dL (Negative); Glucose,Urine (UA) Negative (Negative); Ketones,Urine 5 mg/dL (Negative); Mucus,Urine Occasional /LPF (Occasional); Nitrite,Urine Negative (Negative); Protein,Urine 30 MG/DL; RBC,Urine 3 /HPF (0-4); Squamous Epithelial Cell,Urine Occasional /HPF (0-10); Urine Color Yellow (Yellow); Urine Specific Gravity 1.019 (1.001-1.035); WBC,Urine 2 /HPF (0-6)
[2019-04-04 11:21] LABS: Eosinophils % 0.1 % (0.00-10.9); Hematocrit 36.6 VOL% (35.7-47.0); Immature Granulocytes % 0.4 %; Immature Granulocytes Absolute 0.03 #; Lymphocytes # 0.5 10*3/uL (1.4-4.0); Lymphocytes % 7.5 % (21.3-54.2); Mean Corpuscular HGB Conc 28.7 GM/DL (32-36); Mean Platelet Volume 8.8 FL (9.6-12.0); Neutrophils % 86.9 % (38.7-73.9); Platelet Count 444 T/CUMM (130-400); Red Blood Count 5.04 MC/CUMM (3.8-5.5); Red Cell Distribution Width 18.3 % (9.3-17.3)
[2019-04-04 11:22] LABS: Hemoglobin 10.5 GM/DL (12.0-16.0)
[2019-04-04 11:43] LABS: Hypochromasia 2+
[2019-04-04 11:44] LABS: Microcytosis 1+; Ovalocytes Slight; Platelet Estimate Increased
[2019-04-04 11:46] LABS: Albumin 3.5 G/DL (3.4-5.0); Bilirubin,Total 0.7 MG/DL (0.2-1.0); Calcium 9.4 MG/DL (8.5-10.1); Osmolality,Calculated 271.1 MOS/KG (273-304); Total Protein 7.7 G/DL (6.4-8.3)
[2019-04-04] MEDS ORDERED: ACETAMINOPHEN 325 MG TABLET PO PRN (13:39)
[2019-04-04] MEDS: DOCUSATE SODIUM 100 MG CAPSULE PO SCH ×3 (16:02→20:34)
[2019-04-04] MEDS: POLYETHYLENE GLYCOL POWDER 17 GM PACK PO SCH (16:02)
[2019-04-04] MEDS: SODIUM CHLORIDE 0.9% 1,000 ML IV SCH (16:24)
[2019-04-05 06:00] LABS: Calcium 8.1 MG/DL (8.5-10.1); Osmolality,Calculated 280.3 MOS/KG (273-304); Risk Ratio 2.19; VLDL CHOLESTEROL 13.2 MG/DL
[2019-04-05 06:04] LABS: Basophils % 0.8 % (0.0-0.8); Eosinophils # 0.1 10*3/uL (0.0-0.87); Eosinophils % 1.5 % (0.00-10.9); Hematocrit 27.9 VOL% (35.7-47.0); Immature Granulocytes % 0.6 %; Immature Granulocytes Absolute 0.03 #; Lymphocytes # 0.7 10*3/uL (1.4-4.0); Lymphocytes % 15.1 % (21.3-54.2); Mean Corpuscular HGB Conc 28.7 GM/DL (32-36); Mean Corpuscular Volume 73.8 FL (87-102); Mean Platelet Volume 8.4 FL (9.6-12.0); Monocytes % 7.7 % (1.7-12.7); Neutrophils % 74.3 % (38.7-73.9); Platelet Count 300 T/CUMM (130-400); Red Blood Count 3.78 MC/CUMM (3.8-5.5); White Blood Count 4.8 T/CUMM (4-12)
[2019-04-05 06:10] LABS: Hypochromasia 1+; Microcytosis 1+; Ovalocytes Few; Platelet Estimate Adequate
[2019-04-05] MEDS: SODIUM CHLORIDE 0.9% 1,000 ML IV SCH ×2 (06:45→17:51)
[2019-04-05] MEDS ORDERED: PANTOPRAZOLE 40 MG TABLET PO SCH (09:00)
[2019-04-05] MEDS: DOCUSATE SODIUM 100 MG CAPSULE PO SCH ×2 (10:28→20:09)
[2019-04-05] MEDS: POLYETHYLENE GLYCOL POWDER 17 GM PACK PO SCH ×2 (10:28→20:10)
[2019-04-05] MEDS: PANTOPRAZOLE 40 MG TABLET PO SCH (20:10)
[2019-04-06 06:04] LABS: Basophils % 0.8 % (0.0-0.8); Eosinophils # 0.1 10*3/uL (0.0-0.87); Eosinophils % 1.8 % (0.00-10.9); Hemoglobin 8.1 GM/DL (12.0-16.0); Immature Granulocytes % 0.6 %; Immature Granulocytes Absolute 0.03 #; Lymphocytes # 0.5 10*3/uL (1.4-4.0); Lymphocytes % 10.5 % (21.3-54.2); Mean Corpuscular HGB Conc 28.9 GM/DL (32-36); Mean Corpuscular Volume 73.5 FL (87-102); Mean Platelet Volume 8.4 FL (9.6-12.0); Monocytes % 7.5 % (1.7-12.7); Neutrophils % 78.8 % (38.7-73.9); Platelet Count 314 T/CUMM (130-400); Red Blood Count 3.81 MC/CUMM (3.8-5.5); White Blood Count 5.1 T/CUMM (4-12)
[2019-04-06 06:22] LABS: Calcium 7.8 MG/DL (8.5-10.1); Osmolality,Calculated 277.5 MOS/KG (273-304)
[2019-04-06] MEDS ORDERED: SODIUM CHLORIDE 0.9% 500 ML IV SCH (06:30)
[2019-04-06 06:31] LABS: Hypochromasia 1+; Ovalocytes Slight; Platelet Estimate Adequate
[2019-04-06 06:32] LABS: Microcytosis Slight
[2019-04-06] MEDS ORDERED: ONDANSETRON 4 MG/2 ML VIAL ONE (07:45)
[2019-04-06] MEDS: ONDANSETRON 4 MG/2 ML VIAL IV PRN (07:48)
[2019-04-06] MEDS ORDERED: LIDOCAINE 100 MG/5 ML SYRINGE ONE (09:00)
[2019-04-06] MEDS ORDERED: PROPOFOL 200 MG/20 ML VIAL IV ONE (09:00)
[2019-04-06] MEDS: LACTATED RINGERS 500 ML IV SCH (10:03)
[2019-04-06] MEDS: SODIUM CHLORIDE 0.9% 1,000 ML IV SCH (10:24)
[2019-04-06] MEDS: DOCUSATE SODIUM 100 MG CAPSULE PO SCH (10:28)
[2019-04-06] MEDS: PANTOPRAZOLE 40 MG TABLET PO SCH ×2 (10:28→20:23)
[2019-04-06] MEDS: POLYETHYLENE GLYCOL POWDER 17 GM PACK PO SCH ×2 (10:31→20:24)
[2019-04-07 05:13] LABS: Basophils % 0.4 % (0.0-0.8); Eosinophils # 0.1 10*3/uL (0.0-0.87); Eosinophils % 1.8 % (0.00-10.9); Immature Granulocytes % 0.6 %; Immature Granulocytes Absolute 0.03 #; Lymphocytes # 0.6 10*3/uL (1.4-4.0); Lymphocytes % 10.9 % (21.3-54.2); Mean Corpuscular HGB Conc 28.6 GM/DL (32-36); Mean Corpuscular Volume 74.1 FL (87-102); Mean Platelet Volume 8.6 FL (9.6-12.0); Monocytes % 5.2 % (1.7-12.7); Neutrophils % 81.1 % (38.7-73.9); Platelet Count 318 T/CUMM (130-400); Red Blood Count 3.78 MC/CUMM (3.8-5.5); White Blood Count 5.4 T/CUMM (4-12)
[2019-04-07 05:20] LABS: Calcium 7.7 MG/DL (8.5-10.1); Osmolality,Calculated 272.8 MOS/KG (273-304)
[2019-04-07 05:36] LABS: Hypochromasia 1+; Microcytosis 1+; Platelet Estimate Normal; Polychromasia Few
[2019-04-07] MEDS: SODIUM CHLORIDE 0.9% 1,000 ML IV SCH ×2 (05:54→23:55)
[2019-04-07] MEDS ORDERED: MAGNESIUM SULF RIDER 2 GM in PREMIX 1 EACH IV PRN (07:59)
[2019-04-07] MEDS ORDERED: MAGNESIUM SULF RIDER 4 GM in PREMIX 1 EACH IV PRN (07:59)
[2019-04-07] MEDS: ONDANSETRON 4 MG/2 ML VIAL IV PRN (09:07)
[2019-04-07] MEDS ORDERED: SODIUM CHLORIDE 0.9% 500 ML IV ONE (09:21)
[2019-04-07] MEDS: amLODIPine 5 MG TABLET PO SCH (10:00)
[2019-04-07] MEDS: LACTATED RINGERS 500 ML IV SCH (13:38)
[2019-04-07] MEDS: PANTOPRAZOLE 40 MG TABLET PO SCH ×2 (13:38→20:43)
[2019-04-07] MEDS: POLYETHYLENE GLYCOL POWDER 17 GM PACK PO SCH ×2 (13:38→20:43)
[2019-04-08] MEDS: PANTOPRAZOLE 40 MG TABLET PO SCH ×2 (08:57→20:40)
[2019-04-08] MEDS: amLODIPine 5 MG TABLET PO SCH (08:57)
[2019-04-08] MEDS: POLYETHYLENE GLYCOL POWDER 17 GM PACK PO SCH ×2 (08:59→20:40)
[2019-04-08 09:22] LABS: Basophils % 0.4 % (0.0-0.8); Eosinophils # 0.1 10*3/uL (0.0-0.87); Eosinophils % 1.6 % (0.00-10.9); Hematocrit 30.3 VOL% (35.7-47.0); Hemoglobin 8.8 GM/DL (12.0-16.0); Immature Granulocytes % 0.4 %; Immature Granulocytes Absolute 0.02 #; Lymphocytes # 0.5 10*3/uL (1.4-4.0); Lymphocytes % 9.4 % (21.3-54.2); Mean Corpuscular Volume 73.7 FL (87-102); Monocytes % 5.1 % (1.7-12.7); Neutrophils % 83.1 % (38.7-73.9); Platelet Count 332 T/CUMM (130-400); Red Blood Count 4.11 MC/CUMM (3.8-5.5); Red Cell Distribution Width 18.3 % (9.3-17.3); White Blood Count 5.7 T/CUMM (4-12)
[2019-04-08 09:43] LABS: Calcium 7.5 MG/DL (8.5-10.1)
[2019-04-08] MEDS: LACTATED RINGERS 500 ML IV SCH (10:14)
[2019-04-08] MEDS: ONDANSETRON 4 MG/2 ML VIAL IV PRN (16:06)
[2019-04-09] MEDS: SODIUM CHLORIDE 0.9% 1,000 ML IV SCH ×3 (04:27→12:04)
[2019-04-09] MEDS: LACTATED RINGERS 500 ML IV SCH (07:56)
[2019-04-09] MEDS: PANTOPRAZOLE 40 MG TABLET PO SCH (09:19)
[2019-04-09] MEDS: POLYETHYLENE GLYCOL POWDER 17 GM PACK PO SCH (09:20)
[2019-04-09] MEDS: amLODIPine 5 MG TABLET PO SCH (09:20)
[2019-04-09 12:26] VITALS: BP 150/62
== END 2019-04-09 12:48 | disposition home health service (06) | DRG 381 ==
LOC: N.ED 08:54 → N.EDINP 08:54 → SUATTDRO 13:38 → N.4E 15:13 → SUPCPDRO 04-06 15:24 → SUATTDRO 04-06 15:24
PROVIDERS: ADMIT Phlebology; ATTEND Internal Medicine

== ENCOUNTER 2020-12-16 14:18 | Inpatient (IN) ==
[2020-12-16] MEDS ORDERED: ONDANSETRON 4 MG/2 ML VIAL ONE (14:53)
[2020-12-16 15:16] LABS: Basophils # 0.1 10*3/uL (0.0-0.2); Basophils % 0.3 % (0.0-0.8); Hematocrit 23.3 VOL% (35.7-47.0); Immature Granulocytes % 0.7 %; Immature Granulocytes Absolute 0.18 #; Lymphocytes % 3.6 % (21.3-54.2); Mean Corpuscular HGB Conc 22.7 GM/DL (32-36); Mean Platelet Volume 8.8 FL (9.6-12.0); Monocytes % 5.3 % (1.7-12.7); NRBC # 0.06 10*3/uL; Neutrophils % 90.1 % (38.7-73.9); Platelet Count 724 T/CUMM (130-400); Red Blood Count 3.48 MC/CUMM (3.8-5.5); Red Cell Distribution Width 20.9 % (9.3-17.3); White Blood Count 27.4 T/CUMM (4-12)
[2020-12-16 15:24] LABS: Hemoglobin 5.3 GM/DL (12.0-16.0); INR 1.2; PT Patient Result 13.4 SECS (10.5-12.0)
[2020-12-16 15:34] LABS: Albumin 2.7 G/DL (3.4-5.0); Bilirubin,Total 0.5 MG/DL (0.20-1.00); Calcium 8.3 MG/DL (8.5-10.1); Osmolality,Calculated 286.3 MOS/KG (273-304); Potassium 4.4 MMOL/L (3.5-5.1); Total Protein 5.8 G/DL (6.4-8.2)
[2020-12-16 15:41] LABS: Lymphocytes 4 % (20-55); Segmented Neutrophils 94 % (50-85); Total Cells Counted 100
[2020-12-16 15:42] LABS: Anisocytosis 2+; Hypersegmented Neutrophil 1+; Hypochromasia 2+; Platelet Estimate Increased; Polychromasia 1+
[2020-12-16] MEDS ORDERED: ALBUTEROL 2.5 MG/3 ML NEB RESP TX PRN (16:04)
[2020-12-16] MEDS ORDERED: GLUCAGON 1 MG VIAL IM PRN (16:04)
[2020-12-16] MEDS ORDERED: DEXTROSE 50% 25 GM/50 ML VIAL IV PRN (16:04)
[2020-12-16] MEDS ORDERED: LACTULOSE 20 GM/30 ML UDCUP PO PRN (16:04)
[2020-12-16] MEDS ORDERED: SODIUM CHLORIDE 0.9% 1,000 ML IV PRN (16:09)
[2020-12-16] MEDS ORDERED: NALOXONE 0.4 MG/ML VIAL IV PRN (16:10)
[2020-12-16] MEDS: ONDANSETRON 4 MG/2 ML VIAL IV PRN ×2 (16:22→16:41)
[2020-12-16] MEDS ORDERED: cefTRIAXone 1,000 MG in SODIUM CHLORIDE 0.9% 100 ML IV SCH (16:30)
[2020-12-16] MEDS: MORPHINE 2 MG/1 ML SYRINGE IV PRN (16:40)
[2020-12-16 16:41] LABS: % Iron Saturation 2.8 % (18-50); Ferritin 1.2 ng/ml (8-252)
[2020-12-16 16:42] LABS: Folate 16.97 NG/ML (5.38-24.0)
[2020-12-16] MEDS: LACTATED RINGERS 1,000 ML IV SCH (19:15)
[2020-12-16 19:48] LABS: Bacteria,Urine Many /HPF (Few); Bilirubin,Urine Negative (Negative); Blood, Urine Negative (Negative); Glucose,Urine (UA) Negative (Negative); Ketones,Urine Negative (Negative); Mucus,Urine Many /LPF (Occasional); Nitrite,Urine Negative (Negative); Protein,Urine 30 MG/DL; RBC,Urine 6 /HPF (0-4); Squamous Epithelial Cell,Urine Occasional /HPF (0-10); Urine Appearance CLOUDY (Clear); Urine Color Amber (Yellow); Urine Specific Gravity 1.016 (1.001-1.035)
[2020-12-16] MEDS: PANTOPRAZOLE 40 MG VIAL IV SCH (21:14)
[2020-12-16] MEDS: DOCUSATE SODIUM 100 MG CAPSULE PO SCH (21:14)
[2020-12-17] MEDS: MORPHINE 2 MG/1 ML SYRINGE IV PRN (00:08)
[2020-12-17 06:31] LABS: Calcium 7.9 MG/DL (8.5-10.1); Osmolality,Calculated 281.4 MOS/KG (273-304); Potassium 4.9 MMOL/L (3.5-5.1); Risk Ratio 2.23; Thyroid Stimulating Hormone 2.3 uIU/ml (0.358-3.74); VLDL Cholesterol 11.8 MG/DL
[2020-12-17 07:14] LABS: Basophils % 0.2 % (0.0-0.8); Hemoglobin 9.2 GM/DL (12.0-16.0); Immature Granulocytes % 0.3 %; Immature Granulocytes Absolute 0.03 #; Lymphocytes # 0.6 10*3/uL (1.4-4.0); Lymphocytes % 7.2 % (21.3-54.2); Mean Corpuscular HGB Conc 27.1 GM/DL (32-36); Mean Corpuscular Volume 71.6 FL (87-102); Mean Platelet Volume 8.8 FL (9.6-12.0); Monocytes % 6.7 % (1.7-12.7); NRBC # 0.02 10*3/uL; Neutrophils % 85.6 % (38.7-73.9); Platelet Count 328 T/CUMM (130-400); Red Blood Count 4.75 MC/CUMM (3.8-5.5); Red Cell Distribution Width 20.5 % (9.3-17.3); White Blood Count 8.7 T/CUMM (4-12)
[2020-12-17] MEDS: DOCUSATE SODIUM 100 MG CAPSULE PO SCH ×2 (08:33→21:21)
[2020-12-17] MEDS: POLYETHYLENE GLYCOL POWDER 17 GM PACK PO SCH (08:33)
[2020-12-17] MEDS ORDERED: PANTOPRAZOLE 40 MG TABLET PO SCH (09:00)
[2020-12-17] MEDS: PANTOPRAZOLE 40 MG VIAL IV SCH ×2 (09:16→21:22)
[2020-12-17] MEDS ORDERED: KETAMINE 500 MG/10 ML VIAL ONE (09:54)
[2020-12-17] MEDS ORDERED: TRANEXAMIC ACID 1,000 MG/10 ML VIAL ONE (09:54)
[2020-12-17] MEDS ORDERED: GLYCOPYRROLATE 0.4 MG/2 ML VIAL ONE (09:54)
[2020-12-17] MEDS ORDERED: PHENYLEPHRINE 1 MG/10 ML SYRINGE IV ONE (09:54)
[2020-12-17] MEDS ORDERED: VANCOMYCIN 1,000 MG VIAL ONE (10:16)
[2020-12-17] MEDS ORDERED: CLINDAMYCIN INJ 900 MG/50 ML PREMIX IV ONE (10:25)
[2020-12-17] MEDS ORDERED: SODIUM CHLORIDE 0.9% 0 ML IV ONE (10:56)
[2020-12-17] MEDS ORDERED: SODIUM CHLORIDE 0.9% 250 ML IV ONE (10:56)
[2020-12-17] MEDS ORDERED: PHENYLEPHRINE 10 MG/1 ML VIAL IV ONE (10:56)
[2020-12-17] MEDS ORDERED: LACTATED RINGERS 1,000 ML IV ONE (11:17)
[2020-12-17 12:03] LABS: Hypochromasia 4+; Microcytosis 4+; Platelet Estimate Normal
[2020-12-17] MEDS: CLINDAMYCIN INJ 600 MG/50 ML PREMIX IV SCH ×2 (13:08→17:30)
[2020-12-17] MEDS: LACTATED RINGERS 1,000 ML IV SCH (13:08)
[2020-12-17] MEDS: ENOXAPARIN 30 MG/0.3 ML SYRINGE SUBCUT SCH ×2 (13:08→21:31)
[2020-12-17] MEDS: FERROUS SULFATE 325 MG TABLET PO SCH (21:21)
[2020-12-18] MEDS: CLINDAMYCIN INJ 600 MG/50 ML PREMIX IV SCH ×3 (02:28→17:34)
[2020-12-18 06:32] LABS: Calcium 7.5 MG/DL (8.5-10.1); Osmolality,Calculated 271.1 MOS/KG (273-304); Potassium 4.2 MMOL/L (3.5-5.1)
[2020-12-18 07:18] LABS: Basophils % 0.4 % (0.0-0.8); Eosinophils # 0.1 10*3/uL (0.0-0.87); Eosinophils % 1.2 % (0.00-10.9); Hematocrit 21.7 VOL% (35.7-47.0); Immature Granulocytes % 0.4 %; Immature Granulocytes Absolute 0.02 #; Lymphocytes # 0.4 10*3/uL (1.4-4.0); Lymphocytes % 8.6 % (21.3-54.2); Mean Corpuscular HGB Conc 28.1 GM/DL (32-36); Mean Corpuscular Volume 68.9 FL (87-102); Mean Platelet Volume 8.7 FL (9.6-12.0); Monocytes % 9.1 % (1.7-12.7); Neutrophils % 80.3 % (38.7-73.9); Platelet Count 198 T/CUMM (130-400); Red Blood Count 3.15 MC/CUMM (3.8-5.5); Red Cell Distribution Width 20.1 % (9.3-17.3); White Blood Count 4.9 T/CUMM (4-12)
[2020-12-18 07:40] LABS: Hemoglobin 6.1 GM/DL (12.0-16.0)
[2020-12-18 07:43] LABS: Eosinophils 3 % (0-10); Hypochromasia 2+; Lymphocytes 10 % (20-55); Microcytosis 1+; Platelet Estimate Adequate; Segmented Neutrophils 84 % (50-85); Total Cells Counted 100
[2020-12-18] MEDS ORDERED: SODIUM CHLORIDE 0.9% 1,000 ML IV PRN (08:52)
[2020-12-18] MEDS: DOCUSATE SODIUM 100 MG CAPSULE PO SCH ×2 (09:16→21:26)
[2020-12-18] MEDS: PANTOPRAZOLE 40 MG VIAL IV SCH ×2 (09:17→21:29)
[2020-12-18] MEDS: FERROUS SULFATE 325 MG TABLET PO SCH ×2 (09:17→21:26)
[2020-12-18] MEDS: POLYETHYLENE GLYCOL POWDER 17 GM PACK PO SCH (09:20)
[2020-12-18] MEDS: ENOXAPARIN 30 MG/0.3 ML SYRINGE SUBCUT SCH ×2 (11:14→23:12)
[2020-12-18] MEDS: SODIUM CHLORIDE 0.9% 1,000 ML IV SCH (12:05)
[2020-12-18 14:04] LABS: Folate 9.55 NG/ML (5.38-24.0)
[2020-12-19] MEDS: CLINDAMYCIN INJ 600 MG/50 ML PREMIX IV SCH (02:19)
[2020-12-19 05:09] LABS: Calcium 7.5 MG/DL (8.5-10.1); Potassium 3.7 MMOL/L (3.5-5.1)
[2020-12-19 05:40] LABS: Basophils % 0.3 % (0.0-0.8); Eosinophils # 0.1 10*3/uL (0.0-0.87); Eosinophils % 1.8 % (0.00-10.9); Hematocrit 31.6 VOL% (35.7-47.0); Hemoglobin 9.4 GM/DL (12.0-16.0); Immature Granulocytes % 1.2 %; Immature Granulocytes Absolute 0.07 #; Lymphocytes # 0.5 10*3/uL (1.4-4.0); Lymphocytes % 7.9 % (21.3-54.2); Mean Corpuscular HGB Conc 29.7 GM/DL (32-36); Mean Corpuscular Volume 75.4 FL (87-102); Mean Platelet Volume 8.3 FL (9.6-12.0); Monocytes % 7.7 % (1.7-12.7); NRBC # 0.03 10*3/uL; Neutrophils % 81.1 % (38.7-73.9); Platelet Count 178 T/CUMM (130-400); Red Blood Count 4.19 MC/CUMM (3.8-5.5); Red Cell Distribution Width 22.8 % (9.3-17.3)
[2020-12-19 05:48] LABS: Hypochromasia 1+; Microcytosis 1+; Ovalocytes Slight
[2020-12-19 05:49] LABS: Platelet Estimate Adequate; Polychromasia Slight
[2020-12-19] MEDS: SODIUM CHLORIDE 0.9% 1,000 ML IV SCH (06:20)
[2020-12-19] MEDS: FERROUS SULFATE 325 MG TABLET PO SCH ×2 (10:01→21:38)
[2020-12-19] MEDS: ENOXAPARIN 30 MG/0.3 ML SYRINGE SUBCUT SCH ×2 (10:02→23:42)
[2020-12-19] MEDS: POLYETHYLENE GLYCOL POWDER 17 GM PACK PO SCH (10:02)
[2020-12-19] MEDS: DOCUSATE SODIUM 100 MG CAPSULE PO SCH ×2 (10:02→21:38)
[2020-12-19] MEDS: PANTOPRAZOLE 40 MG VIAL IV SCH ×2 (10:02→21:38)
[2020-12-20] MEDS: SODIUM CHLORIDE 0.9% 1,000 ML IV SCH (00:49)
[2020-12-20 05:51] LABS: Basophils % 0.3 % (0.0-0.8); Eosinophils # 0.2 10*3/uL (0.0-0.87); Eosinophils % 2.5 % (0.00-10.9); Hematocrit 34.1 VOL% (35.7-47.0); Hemoglobin 10.2 GM/DL (12.0-16.0); Immature Granulocytes % 0.7 %; Immature Granulocytes Absolute 0.05 #; Lymphocytes # 0.4 10*3/uL (1.4-4.0); Lymphocytes % 6.1 % (21.3-54.2); Mean Corpuscular HGB Conc 29.9 GM/DL (32-36); Mean Corpuscular Volume 75.6 FL (87-102); Monocytes % 5.9 % (1.7-12.7); Neutrophils % 84.5 % (38.7-73.9); Platelet Count 210 T/CUMM (130-400); Red Blood Count 4.51 MC/CUMM (3.8-5.5); Red Cell Distribution Width 23.9 % (9.3-17.3); White Blood Count 6.8 T/CUMM (4-12)
[2020-12-20 05:59] LABS: Calcium 7.8 MG/DL (8.5-10.1); Osmolality,Calculated 272.7 MOS/KG (273-304); Potassium 3.9 MMOL/L (3.5-5.1)
[2020-12-20 06:18] LABS: Eosinophils 2 % (0-10); Lymphocytes 4 % (20-55); Platelet Estimate Adequate; Segmented Neutrophils 90 % (50-85); Total Cells Counted 100
[2020-12-20 06:19] LABS: Hypochromasia 1+; Microcytosis 1+
[2020-12-20] MEDS: PANTOPRAZOLE 40 MG VIAL IV SCH (09:49)
[2020-12-20] MEDS: FERROUS SULFATE 325 MG TABLET PO SCH (09:49)
[2020-12-20] MEDS: POLYETHYLENE GLYCOL POWDER 17 GM PACK PO SCH (09:49)
[2020-12-20] MEDS: DOCUSATE SODIUM 100 MG CAPSULE PO SCH (09:49)
[2020-12-20] MEDS ORDERED: BISACODYL 10 MG SUPP RECTAL ONE (10:35)
[2020-12-20 11:30] VITALS: BP 140/72
[2020-12-20] MEDS: ENOXAPARIN 30 MG/0.3 ML SYRINGE SUBCUT SCH (12:02)
== END 2020-12-20 17:20 | disposition home health service (06) | DRG 481 ==
LOC: EDUNIT# → EDBD → N.ED 14:18 → N.EDINP 16:02 → N.3E 17:52
PROVIDERS: ADMIT Internal Medicine; ATTEND Internal Medicine